=== PATIENT | female | born 1995 | race Caucasian/White ===

== ENCOUNTER 2019-08-10 15:39 | Outpatient (CLI) | payer OTHER, SELFPAY | END 2019-08-10 15:40 | disposition home or self-care (01) | LOC: LAB 15:42 | PROVIDERS: Family Provider Family Medicine; PCP Family Medicine; Visit Provider Family Medicine | DX: K92.1 Melena (principal); K52.1 Toxic gastroenteritis and colitis; T36.95XA Adverse effect of unspecified systemic antibiotic, initial encounter | CPT/HCPCS: 83993; 87493; 87505 ==

== ENCOUNTER → 2019-09-12 16:15 | Outpatient (BNVA) | payer OTHER, SELFPAY | PROVIDERS: Family Provider Family Medicine; PCP Family Medicine; Visit Provider Internal Medicine | DX: R10.9 Unspecified abdominal pain (principal); K92.1 Melena | CPT/HCPCS: 83993; 85025; 85651; 86140 ==

== ENCOUNTER → 2020-12-25 14:09 | Outpatient (BNVA) | payer OTHER, SELFPAY | PROVIDERS: Family Provider Family Medicine; PCP Family Medicine; Visit Provider Nurse Practitioner Women's Health | DX: Z73.2 Lack of relaxation and leisure (principal); Z11.3 Encounter for screening for infections with a predominantly sexual mode of transmission | CPT/HCPCS: 80048; 87491; 87591; 87661 ==

== ENCOUNTER → 2021-03-28 15:15 | Outpatient (BNVA) | payer OTHER, SELFPAY | PROVIDERS: Family Provider Family Medicine; PCP Family Medicine; Visit Provider Nurse Practitioner Women's Health | DX: A54.9 Gonococcal infection, unspecified (principal); N76.0 Acute vaginitis; B96.89 Other specified bacterial agents as the cause of diseases classified elsewhere | CPT/HCPCS: 87591 ==

== ENCOUNTER → 2022-04-11 16:42 | Outpatient (BNVA) | payer OTHER, SELFPAY | PROVIDERS: Family Provider Family Medicine; PCP Family Medicine; Visit Provider Nurse Practitioner | DX: S59.901A Unspecified injury of right elbow, initial encounter (principal); W19.XXXA Unspecified fall, initial encounter | CPT/HCPCS: 73080 ==

== ENCOUNTER → 2022-04-23 14:27 | Outpatient (BNVA) | payer OTHER, SELFPAY | PROVIDERS: Family Provider Family Medicine; PCP Family Medicine; Visit Provider Nurse Practitioner Family | DX: S52.124A Nondisplaced fracture of head of right radius, initial encounter for closed fracture (principal); V00.128A Other non-in-line roller-skating accident, initial encounter | CPT/HCPCS: 73080 ==

== ENCOUNTER → 2022-06-03 09:55 | Outpatient (BNVA) | payer OTHER, SELFPAY | PROVIDERS: Family Provider Family Medicine; PCP Family Medicine; Visit Provider Nurse Practitioner Women's Health | DX: Z11.3 Encounter for screening for infections with a predominantly sexual mode of transmission (principal); N93.0 Postcoital and contact bleeding; Z12.4 Encounter for screening for malignant neoplasm of cervix | CPT/HCPCS: 86803; 87340; 87491; 87591; 87661; 87806; 88175 ==

== ENCOUNTER → 2023-06-15 15:52 | Outpatient (BNVA) | payer OTHER, SELFPAY | PROVIDERS: Family Provider Family Medicine; PCP Family Medicine; Visit Provider Nurse Practitioner Women's Health | DX: L73.2 Hidradenitis suppurativa (principal) | CPT/HCPCS: 80048 ==

== ENCOUNTER → 2024-06-22 15:38 | Outpatient (BNVA) | payer OTHER, SELFPAY | PROVIDERS: Family Provider Family Medicine; PCP Family Medicine; Visit Provider Nurse Practitioner Women's Health | DX: L73.2 Hidradenitis suppurativa (principal); Z01.419 Encounter for gynecological examination (general) (routine) without abnormal findings | CPT/HCPCS: 80048; 87624 ==

== ENCOUNTER → 2024-10-25 11:59 | Outpatient (BNVA) | payer OTHER, SELFPAY | PROVIDERS: Family Provider Family Medicine; PCP Family Medicine; Visit Provider Nurse Practitioner Women's Health | DX: Z11.3 Encounter for screening for infections with a predominantly sexual mode of transmission (principal) | CPT/HCPCS: 87491; 87591; 87624; 87661 ==

== ENCOUNTER 2024-12-08 19:36 | Emergency (ER) | payer OTHER, SELFPAY ==
[2024-12-08 19:40] VITALS: BP 131/90; PULSE 95; RESP 16; TEMP 36.7; O2SAT 99; BMI 32.3
--- NOTE | 2024-12-08 19:41 | XRR_ITS ---
PROCEDURE INFORMATION: Exam: XR Left Ankle Exam date and time: 12/08/2024 7:47 PM Age: 29 years old Clinical indication: Injury or trauma; Blunt trauma; Fall with left ankle injury. Unable to bear weight with minor swelling. ; Additional info: Ankle pain TECHNIQUE: Imaging protocol: Radiologic exam of the left ankle. Views: 3 or more views. COMPARISON: No relevant prior studies available. FINDINGS: Bones/joints: No acute fracture. Soft tissues: Soft tissue swelling along the lateral aspect of the ankle. XR/XR ankle LT min 3V* [id number] IMPRESSION: 1. Soft tissue swelling along the lateral aspect of the ankle. 2. No acute fracture.
--- NOTE | 2024-12-08 20:02 | ED_ITS ---
HPI - Extremity Problem 2 General: Chief complaint: Extremity Injury, Lower Stated complaint: left ankle injury Time Seen by Provider: 12/08/24 19:40 History of Present Illness: Selected Entries 12/08/24 19:40 ED Triage Comment Patient presents v ia wheelchair to E R for left ankle i njury post-fall an d skinned right kn ee. Patient endors e some dizziness a nd lightheadedness , but denies head injury or LOC. Ca nnot bear any weig ht to affected ext remity. Ankle does appear swollen, 2 + pedal pulse pres ent. Patient is a 29-year-old female that was walking a large case of water down the stairs, rolled her left ankle, and fell forward scraping her right knee and extending distally. Patient complains of left ankle pain, on the medial side, with minimal swelling. She is having difficulty with any ambulation. Denies any current or walking down the stairs lightheadedness/dizziness to me. She states that she is however thirsty and could be a little dehydrated. This occurred just prior to evaluation in ED. Associated symptoms: Deny chest pain or fever(s) Related Data Home Medications ?Medication ?Instructions ?Recorded ?Confirmed escitalopram oxalate 20 mg tablet 20 mg PO DAILY 08/2810/25/24 nortriptyline 25 mg capsule mg PO 06/22/24 10/25/24 Previous Rx's ?Medication ?Instructions ?Recorded spironolactone 100 mg tablet See Rx Instructions .Donald maciel 06/20/24 .COMPLEX #180 tabs norgestimate 0.25 mg-ethinyl See Rx Instructions .Donald maciel 06/22/24 estradiol 0.035 mg tablet .COMPLEX #84 tabs (Sprintec (28)) metronidazole 500 mg tablet 500 mg PO BID 7 days #14 t abs 10/25/24 Allergies Allergy/AdvReac Type Severity Reaction Status Date / Time No Known Allergies Allergy Verified 10/25/24 09:37 Review of Systems 2 General: Reports: 10 or more systems reviewed and unremarkable except in HPI and below Const: Denies: fever(s) or chills ENMT: Reports: dry mouth; Denies: throat pain Card: Denies: chest pain or palpitations Resp: Denies: dyspnea or productive cough GI: Denies: abdominal pain, nausea or vomiting : Denies: flank pain or difficulty voiding Musc: Reports: extremity pain, joint pain and joint swelling; Denies: joint redness or joint warmth Skin/Breast: Reports: sores (to right knee after fall) Neuro: Denies: headache(s), numbness in extremities, lack of coordination or dizziness Psych: Denies: anxiety or depression Endo: Reports: polydipsia; Denies: polyuria PFSH ED 2 PFSH: Medical History No pertinent past medical history neghx: htn,dm,thyroid,dvt/pe PCP: Dr. Amos Hidradenitis 02/08/2019 - reports boils on her face, axilla, groin and thighs--- her control is helping her acne some BMP for baseline Will start spironolactone for suppression We discussed this is a lifelong condition which requires constant treatment which includes limiting her shaving and good personal hygiene, avoid tight fitting clothes, stop smoking, and weight loss. We discussed the severest form of hidradenitis supperativa includes multiple sinus tracts which continually drain and cause much discomfort. Anxiety with depression Female urethrocele Surgical History History of colonoscopy (08/02/17) History of tonsillectomy and adenoidectomy at the age of 16-17. Performed in [facility] Family History Mother Hypothyroidism Grandmother No problems noted. Grandfather Hypertension Paternal Denies family history of Colon cancer Ovarian cancer Diabetes Breast cancer Uterine cancer Stroke Social History Smoking and tobacco/nicotine status: current every day tobacco/nicotine user Physical Exam 2 Const: COMMON NORMALS: patient oriented x3 HENMT: COMMON NORMALS: normocephalic and atraumatic HEAD & SCALP: n ormocephalic and atraumatic Resp: COMMON NORMALS: normal respiratory effort and clear to auscultation bilaterally AUSCULTATION: clear to auscultation bilaterally Cardio: COMMON NORMALS: S1 normal heart sound present and S2 normal heart sound present HEART SOUNDS: S1 normal heart sound present and S2 normal heart sound present : COMMON NORMALS: Yes no CVA tenderness BLADDER/KIDNEY EXAM: Yes no CVA tenderness Back/Pelvis: COMMON NORMALS: no CVA tenderness and thoraco-lumbar ROM normal Extremity: COMMON NORMALS: negative for full ROM GENERAL: Yes edema (mild, lateral left malleous) LEFT LOWER EXTREMITY: Yes ankle joint Left ankle: Yes ROM (decreased due to pain, medial malleolus) Neuro: COMMON NORMALS: patient oriented x3 and CN's II-XII intact bilaterally Psych: COMMON NORMALS: mental status grossly normal, Normal thought process present and speech normal ATTITUDE: Yes calm and Yes engaged SPEECH: Yes normal speech THOUGHT PROCESS: Normal thought process present Skin: COMMON NORMALS: negative for no wounds SKIN IMAGES (FEMALE): 1. pain 2. superficial abrasion Course 2 Vital Signs: Vital signs: Vital Signs Temperature 98.0 F 12/08/24 19:40 Pulse Rate 95 12/08/24 19:40 Respiratory Rate 16 12/08/24 19:40 Blood Pressure 131/90 12/08/24 19:40 Pulse Oximetry 99 12/08/24 19:40 Oxygen Delivery Me thod Room Air 12/08/24 19:40 MDM - Extremity (Nontraumatic) Medical Decision Making Patient is a 29-year-old female without medical issues presented to the emergency room due to fall on stairs, she twisted her left ankle, was carrying a case of water, and fell forward with superficial abrasion to her right anterior surface. X-ray does not show acute fracture. I do suspect a ankle sprain. Will apply ankle stirrup, and recommend ice, elevation, compression, and NSAIDs. Lab Data Radiology Impressions Ankle X-Ray 12/08/24 19:41 IMPRESSION: 1. Soft tissue swelling along the lateral aspect of the ankle. 2. No acute fracture. All radiology interpretation(s) finalized by discharge ED provider radiology interpretation(s): no acute findings Discharge Plan Discharge Patient Disposition: Home Clinical Impression: Superficial abrasion Inversion sprain of left ankle Qualifiers: Encounter type: initial encounter Qualified Code(s): S93.402A - Sprain of unspecified ligament of left ankle, initial encounter Condition: Stable Prescriptions: No Action escitalopram oxalate 20 mg tablet 20 mg PO DAILY nortriptyline 25 mg capsule PO norgestimate-ethinyl estradiol [Sprintec (28)] 0.25-35 mg-mcg tablet See Rx Instructions .ROUTE .COMPLEX Qty: 84 3RF Dose Instruction: Take 1 tablet by mouth once daily Rx Instructions: Take 1 tablet by mouth once daily metronidazole 500 mg tablet 500 mg PO BID 7 Days Qty: 14 0RF spironolactone 100 mg tablet See Rx Instructions .ROUTE .COMPLEX Qty: 180 3RF Dose Instruction: Take 2 tablets by mouth once daily Rx Instructions: Take 2 tablets by mouth once daily Discharge Orders: Discharge ED (Routine); Ordered 12/08/24 Ordered By: Fern Horan Referrals: Savage Amos MD [Primary Care Provider, Family Practice] Discharge Diet: Usual diet Discharge Activity: Increase activity as tolerated Patient Instructions: Ankle Sprain (ED), Ankle Stirrup Splint (ED) Activity Restrictions/Additional Instructions: Utilize Tylenol, with NSAIDs (ibuprofen or naproxen) for pain. Compress, ice, elevate Return to ED for further issues, worsening pain. Call your doctor on Wednesday?for follow-up. You may need repeat x-ray if still having issues. Print Language: [place] Coding Level of Care Code ED [place] for Saundra Young
[2024-12-08] MEDS: ketorolac 30 mg/mL INJ IM (21:17)
[2024-12-08] MEDS: mupirocin oint 22 gm 1 APPLIC TOPICAL (21:18)
[2024-12-08] MEDS: orphenadrine 30 mg/mL Inj 2 mL 60 MG IM (21:18)
[2024-12-08 21:48] VITALS: BP 132/94; PULSE 77; RESP 17; O2SAT 97
== END 2024-12-08 21:50 | disposition home or self-care (01) ==
PROVIDERS: Emergency Provider Physician Assistant; PCP Family Medicine
DX: S93.402A Sprain of unspecified ligament of left ankle, initial encounter (principal); F17.200 Nicotine dependence, unspecified, uncomplicated; W10.9XXA Fall (on) (from) unspecified stairs and steps, initial encounter
CPT/HCPCS: 73610; 96372; 99284; J1885; J2360; J9999

== ENCOUNTER → 2025-06-27 16:07 | Outpatient (BNVA) | payer BC, SELFPAY | PROVIDERS: PCP Family Medicine; Visit Provider Nurse Practitioner Women's Health | DX: L73.2 Hidradenitis suppurativa (principal); Z79.899 Other long term (current) drug therapy | CPT/HCPCS: 80053 ==